=== PATIENT | female | born 1975 | race Caucasian/White ===

== ENCOUNTER 2023-06-06 07:29 | Day surgery (SDC) | payer MEDICARE ==
[2023-06-06] VITALS (18 sets, daily range): BP systolic 115–136; BP diastolic 74–90
[~2023-06-06] VITALS: Ht 167.6 cm; Wt 62.0 kg
[2023-06-06] MEDS ORDERED: LAMO100 PO (08:02)
[2023-06-06] MEDS ORDERED: CLON.5 PO (08:02)
[2023-06-06] MEDS ORDERED: GABA800 PO (08:03)
[2023-06-06] MEDS ORDERED: OLAN20 MM (08:04)
[2023-06-06] MEDS ORDERED: ESTA1 PO (08:04)
[2023-06-06] MEDS ORDERED: AMBIEN10 MG PO (08:05)
--- NOTE | 2023-06-06 08:06 | NUR ---
History, Chart, Medications and Allergies reviewed before start of procedure. Patient States Post-Procedure ride home has been arranged. Patient confirms NPO status and agrees with scheduled surgery. PT STATES SHE DRANK ALL PREP, LAST RESULTS IN TOILET- NOT CLEAR, YELLOW. DR BERNABE AWARE.
--- NOTE | 2023-06-06 08:14 | NUR ---
06/06/23 0814 Rivka Thorne HISTORY, CHART, MEDICATIONS AND ALLERGIES REVIEWED BEFORE START OF PROCEDURE. PATIENT CONFIRMS NPO STATUS AND AGREES WITH SCHEDULED PROCEDURE. 3-LEAD EKG REVIEWED WITH PHYSICIAN PRIOR TO START OF PROCEDURE. MONITOR INTACT WITH CONTINUOUS PULSE OXIMETRY,CAPNOGRAPHY, 3-LEAD EKG, INTERMITTENT BP. SUPPLEMENTAL O2 TO BE TITRATED THROUGHOUT PROCEDURE TO MAINTAIN O2 SATURATION ABOVE 90%. PATIENT DETERMINED TO BE ASA APPROPRIATE FOR PROPOFOL SEDATION PRIOR TO START OF PROCEDURE BY DR. BERNABE. MALLAMPATI CLASS 2 AIRWAY: COMPLETE VISUALIZATION OF THE UVULA.
--- NOTE | 2023-06-06 09:15 | NUR ---
Discharge instructions reviewed with patient. Patient verbalizes understanding. Copy given to patient to take home. Discharged via wheelchair to private car for ride home. Patient States Post-Procedure ride home has been arranged.
== END 2023-06-06 23:07 | disposition home or self-care (01) ==
LOC: ORSCMMR 07:29 → ORD 08:30 → ORSCMMR 08:30
PROVIDERS: Internal Medicine Gastroenterology
PROC: 0DBN8ZX Excision of Sigmoid Colon, Via Natural or Artificial Opening Endoscopic, Diagnostic (ICD-10-PCS; principal; 2023-06-06 08:30)
DX: K62.89 Other specified diseases of anus and rectum (principal); K63.5 Polyp of colon; F31.9 Bipolar disorder, unspecified; Z87.891 Personal history of nicotine dependence; Z79.899 Other long term (current) drug therapy
CPT/HCPCS: 88305; J2250; J2704; J7120